=== PATIENT | male | born 1955 ===

== ENCOUNTER 2023-01-24 09:15 | Inpatient (IN) | payer OTHER ==
[~2023-01-24] VITALS: Ht 188 cm; Wt 77.1 kg
[2023-01-24] MEDS ORDERED: PEPCID AC10 MG PO (14:47)
[2023-01-24] MEDS ORDERED: DAILY VALUE1 EACH PO (14:48)
[2023-01-24] MEDS ORDERED: PROTONIX40 M1 PO (14:48)
[2023-01-31] MEDS ORDERED: VITAMIN B-121000 MCG (09:26)
[2023-02-04] MEDS ORDERED: HYOSCYAMINE0.125 M1 SL (08:02)
[2023-02-04] MEDS ORDERED: INTEGRA PLUS C1 EACH PO (08:02)
[2023-02-04] MEDS ORDERED: LEVOFLOXACIN500 MG PO (08:03)
[2023-02-04] MEDS ORDERED: TRAM1TAB98 PO (08:03)
== END 2023-02-04 09:28 | disposition home or self-care (01) | DRG 331 ==
LOC: SURH 01-31 06:25 → O/R 01-31 06:25 → SURG 01-31 07:00 → SURH 01-31 13:38
PROVIDERS: ADMIT Surgery; ATTEND Surgery
PROC: 0DBP4ZZ Excision of Rectum, Percutaneous Endoscopic Approach (ICD-10-PCS; 2023-01-31)
PROC: 07BC4ZZ Excision of Pelvis Lymphatic, Percutaneous Endoscopic Approach (ICD-10-PCS; 2023-01-31)
PROC: 0DJD8ZZ Inspection of Lower Intestinal Tract, Via Natural or Artificial Opening Endoscopic (ICD-10-PCS; 2023-01-31)
PROC: 0DTN4ZZ Resection of Sigmoid Colon, Percutaneous Endoscopic Approach (ICD-10-PCS; principal; 2023-01-31 07:00)
DX: C18.7 Malignant neoplasm of sigmoid colon (principal); R59.0 Localized enlarged lymph nodes; F10.10 Alcohol abuse, uncomplicated; Z87.891 Personal history of nicotine dependence